=== PATIENT | male | born 1945 | race Caucasian/White ===

== ENCOUNTER 2019-01-18 11:19 | Day surgery (SDC) | payer OTHER, MEDICARE ==
--- OUTSIDE RECORDS SUMMARY | 2019-01-18 11:27 | XMS REPORT | Summary of Care ---
:1945 Author Organization [facility] Address [id number] [place] [id number]- Encounter [facility] Mely(FIN) [id number] Date(s): 12/30/18 - 12/30/18 [facility] [id number] [place] [phone]- [phone] Discharge Disposition: Home or Self Care Attending Physician: Beth Larson MD Referring Physician: Beth Larson MD Vital Signs Most recent to oldest [Reference Range]: 1 2 Height 177.8 cm 177.8 cm (12/30/18 9:30 AM) (12/30/18 9:28 AM) Weight 81.818 kg 81.818 kg (12/30/18 9:30 AM) (12/30/18 9:28 AM) Body Mass Index 25.88 m2 25.88 m2 (12/30/18 9:30 AM) (12/30/18 9:28 AM) Problem List No data available for this section Allergies, Adverse Reactions, Alerts Substance Reaction Severity Status NKDA Active Medications atorvastatin 20 mg oral tablet 20 mg=1 tab, PO, Bedtime, # 90 tab, 1 Refill(s) Start Date: 12/30/18 Status: Orderedlevothyroxine 150 microgram, PO, Daily, 0 Refill(s) Start Date: 12/30/18 Status: OrderedLyrica 75 mg oral capsule 75 mg=1 cap, PO, BID, # 60 cap, 0 Refill(s) Start Date: 12/30/18 Status: OrderedpredniSONE 20 mg oral tablet 20 mg=1 tab, PO, QID-After Meals, 0 Refill(s) Start Date: 12/30/18 Status: Ordered Results HEMATOLOGY Most recent to oldest [Reference Range]: 1 WBC [3.7-10.4 K/CMM] 12.3 K/CMM *HI* (12/30/18 9:37 AM) RBC [4.70-6.10 M/CMM] 4.92 M/CMM (12/30/18 9:37 AM) Hgb [14.0-18.0 g/dL] 15.2 g/dL (12/30/18 9:37 AM) Hct [42.0-54.0 %] 44.5 % (12/30/18 9:37 AM) MCV [80.0-94.0 fL] 90.4 fL (12/30/18 9:37 AM) MCH [27.0-31.0 pg] 30.9 pg (12/30/18 9:37 AM) MCHC [32.0-36.0 g/dL] 34.2 g/dL (12/30/18 9:37 AM) RDW [11.5-14.5 %] 13.5 % (12/30/18 9:37 AM) MPV [7.4-10.4 fL] 9.4 fL (12/30/18 9:37 AM) Platelet [133-450 K/CMM] 60 K/CMM *LOW* (12/30/18 9:37 AM) Segs [45.0-75.0 %] 79.0 % *HI* (12/30/18 9:37 AM) Bands [0.0-11.0 %] 0.0 % (12/30/18 9:37 AM) Lymphocytes [20.0-40.0 %] 11.0 % *LOW* (12/30/18 9:37 AM) Atypical Lymphs [<=0.0 %] 0.0 % (12/30/18 9:37 AM) Monocytes [2.0-12.0 %] 10.0 % (12/30/18 9:37 AM) Neutrophils # [1.5-8.1 K/CMM] 9.7 K/CMM *HI* (12/30/18 9:37 AM) Lymphocytes # [1.0-5.5 K/CMM] 1.4 K/CMM (12/30/18 9:37 AM) Monocytes # [0.0-0.8 K/CMM] 1.2 K/CMM *HI* (12/30/18 9:37 AM) Tot Cell Ct 100 *NA* (12/30/18 9:37 AM) RBC Morph Normal (12/30/18 9:37 AM) Plt Morph Normal (12/30/18 9:37 AM) Retic Auto [0.5-1.5 %] 0.9 % (12/30/18 9:37 AM) Immunizations No data available for this section Procedures Procedure Date Related Diagnosis Body Site Status Sinusectomy and turbinectomy Completed Social History Social History Type Response Smoking Status Former smoker; Type: Cigarettes; Previous treatment: None; Ready to change: No; Concerns about tobacco use in household: No; Exposure to Tobacco Smoke None; Cigarette Smoking Last 365 Days No; Reg Smoking Cessation Counseling No entered on: 12/30/18 Assessment and Plan No data available for this section
--- OUTSIDE RECORDS SUMMARY | 2019-01-18 11:27 | XMS REPORT | Continuity of Care Document ---
:1945 Author Organization Interface Problems Problem Status Onset Classification Date Comments Source Date Reported ITP Active [facility] [place] THROMBOCYTOPENI Active [facility] A, UNSPECIFIED [place] Medications Medication Details Route Status Patient Ordering Order Source Instructions Provider Date Thyroxine 150 Active [facility] microgram, 019 [place] PO, Daily, 0 Refill(s) atorvastatin 20 20 mg=1 Active [facility] mg oral tablet tab, PO, 019 [place] Bedtime, # 90 tab, 1 Refill(s) predniSONE 20 20 mg=1 Active [facility] mg oral tablet tab, PO, 019 [place] QID-After Meals, 0 Refill(s) pregabalin 75 75 mg=1 Active [facility] MG Oral Capsule cap, PO, 019 [place] [Lyrica] BID, # 60 cap, 0 Refill(s) Allergies, Adverse Reactions, Alerts Substance Category Reaction Severity Reaction Status Date Comments Source type Reported Immunizations Immunization Date Given Site Status Last Updated Comments Source Results Order Name Results Value Reference Date Interpretation Comments Source Range HEMATOLOGY MPV 9.4 fL 7.4 - 10.4 12/30 /2018 [place] HEMATOLOGY Platelet 60 K/CMM 133 - 450 12/30 [place] HEMATOLOGY RDW 13.5 % 11.5 - 12/30 [facility] 14.5 [place] HEMATOLOGY MCHC 34.2 g/dL 32.0 - 12/30 [facility] 36.0 [place] HEMATOLOGY MCV 90.4 fL 80.0 - 12/30 [facility] 94.0 [place] HEMATOLOGY Hct 44.5 % 42.0 - 12/30 [facility] 54.0 [place] HEMATOLOGY MCH 30.9 pg 27.0 - 12/30 [facility] 31.0 [place] HEMATOLOGY Hgb 15.2 g/dL 14.0 - 12/30 [facility] 18.0 [place] HEMATOLOGY RBC 4.92 M/CMM 4.70 - 12/30 [facility] 6.10 [place] HEMATOLOGY WBC 12.3 K/CMM 3.7 - 10.4 12/30 [place] HEMATOLOGY Plt Morph Normal 12/30 [place] (12/30/18 9:37 AM) HEMATOLOGY Tot Cell Ct 100 12/30 [place] HEMATOLOGY Segs 79.0 % 45.0 - 12/30 75.0 [place] HEMATOLOGY Monocytes # 1.2 K/CMM 0.0 - 0.8 12/30 [place] HEMATOLOGY RBC Morph Normal 12/30 [place] (12/30/18 9:37 AM) HEMATOLOGY Bands 0.0 % 0.0 - 11.0 12/30 [place] HEMATOLOGY Atypical 0.0 % <=0.0 % 12/30 Lymphs [place] HEMATOLOGY Lymphocytes 11.0 % 20.0 - 12/30 40.0 [place] HEMATOLOGY Monocytes 10.0 % 2.0 - 12.0 12/30 [place] HEMATOLOGY Lymphocytes 1.4 K/CMM 1.0 - 5.5 12/30 [place] HEMATOLOGY Neutrophils 9.7 K/CMM 1.5 - 8.1 12/30 [place] HEMATOLOGY Retic Auto 0.9 % 0.5 - 1.5 12/30 [place] Bone Marrow Bone Marrow Patient Name: BENITO DE LA ROSA 12/30 - [facility] : 1945; Age: 73 years y/o Male MR: [id number] Read by: Benito Lyon MD Dictated Date/time: 12/30/18 10:44 Electronically Signed by: Benito Lyon MD 12/30/18 10:47 FINAL REPORT PROCEDURE: Bone marrow aspiration and bone biopsy PHYSICIAN PROVIDING SERVICE: Benito Lyon M.D. HISTORY: Idiopathic thrombocytopenia purpura SEDATION: Intravenous Versed and fentanyl. 2 mg of Versed and 100 mcg of fentanyl were utilized. "Face to face" sedation time: 6 minutes CONSENT: The procedure, risks, benefits and alternatives were discussed with the patient and written informed consent was obtained. TECHNIQUE: The procedure was performed under CT guidance. With the patient the prone position, Limited CT images were obtained through the pelvis and a suitable posterior location for biopsy of the left posterior iliac crest was chosen. A generous portion of the gluteal region was prepped with ChloraPrep and draped. The site was anesthetized with 1 % lidocaine. A 3 mm incision was made at the entry si te. A 11-gauge bone biopsy needle was advanced under CT guidance to the posterior margin of the bone. 1% lidocaine was injected into the periosteal region. Utilizing the On - Control bone drill system, the needle was advanced into the marrow space. Bone marrow aspiration specimens were collected and deemed to be adequate by the hematology -- insulator technician. The needle was then advanced to allow for core bone specimen. A good core specimen was obtained and given to the technologist. Hemostasis was achieved. The patient tolerated the procedure well and suffered no immediate complications. CT imaging performed at this location utilizes radiation dose optimization techniques which include one or more of the following: -Automated exposure control. -Adjustment of the mA and/or kV according to patient size. -Use of iterative reconstruction technique. CT Radiation Dose DLP 186.75 mGy-cm IMPRESSION: 1. Bone marrow aspiration/bone biopsy, left iliac. SL: [id number] Vital Signs Vital Sign Value Date Comments Source Weight 81.818 12/30/2018 [facility] Height 177.8 cm 12/30/2018 [facility] BMI Calculated 25.88 12/30/2018 [facility] BMI Calculated 25.88 12/30/2018 [facility] Weight 81.818 12/30/2018 [facility] Height 177.8 cm 12/30/2018 [facility] Encounters Location Location Encounter Encounter Reason Attending ADM DC Status Source Details Type Number For Provider Date Date Visit [facility] Outpatient [id number] Beth 12/30 12/31 Kyle Larson /2018 [facility] Procedures Procedure Code Date Perfomer Comments Source Sinusectomy and [id number] [facility] turbinectomy
--- OUTSIDE RECORDS SUMMARY | 2019-01-18 11:27 | XMS REPORT | Clinical Summary ---
:1945 Author Organization [facility] Address [address] [place] [id number] Care Team Providers Name Role Phone Unavailable Primary Care Provider Unavailable Allergies Not on File Medications Not on file Active Problems Not on file Encounters Date Type Specialty Care Team Description 10/22/2018 Lab Lab Fred Awad MD 10/22/2018 Orders Only Procedural Cardiology Corinna Hernandez after 01/17/2018 Social History Tobacco Use Types Packs/Day Years Used Date Never Assessed Sex Assigned at Date Recorded Not on file Job Start Date Occupation Industry Not on file Not on file Not on file Travel History Travel Start Travel End No recent travel history available. Last Filed Vital Signs Not on file Plan of Treatment Health Maintenance Due Date Last Done Comments COLON CANCER SCREENING 1997 SHINGLES VACCINES (#1) 1997 65+ PNEUMOCOCCAL VACCINE (1 of 2 - PCV13) 2012 PNEUMOCOCCAL POLYSACCHARIDE VACCINE AGE 65 AND OVER 2012 INFLUENZA VACCINE 04/29/2019 Procedures Procedure Name Priority Date/Time Associated Diagnosis Comments ECG PRE/POST OP Routine 10/22/2018 2:15 PM Results for this [employer] procedure are in the results section. after 01/17/2018 Results ECG Pre/Post Op (10/22/2018 2:15 PM [employer]) Ventricular rate 64 [facility] Atrial rate 64 [facility] DE interval 164 [facility] QRSD interval 98 [facility] QT interval 428 [facility] QTC interval 441 [facility] P axis 1 37 [facility] QRS axis 1 42 [facility] T wave axis 47 [facility] EKG impression Sinus rhythm with occasional premature [facility] ventricular complexes-Nonspecific ST abnormality-Abnormal ECG-No previous ECGs available- Narrative Performed At Performing Organization Address City/State/Zipcode Phone Number [facility] [address] [place] [address] after 01/17/2018 Insurance Payer Benefit Plan / Group Subscriber ID Type Phone Address MEDICARE MEDICARE PART A AND B xxxxxxxxxxx Medicare [place], [place] ([address] [place] [address] Advance Directives Patient has advance care planning documents on file. For more information, please contact:[id number] [place] [address]
[2019-01-18] MEDS ORDERED: NA CHLORIDE 0.9% 250 ML ONE (12:42)
[2019-01-18 14:17] LABS: MPV 8.7 fL (7.6-11.3)
[2019-01-18 14:35] LABS: Platelet Estimate DECR
== END 2019-01-18 14:15 | disposition home or self-care (01) ==
LOC: DS 11:19
PROVIDERS: ATTEND Internal Medicine Medical Oncology
DX: D69.3 Immune thrombocytopenic purpura (principal); D69.6 Thrombocytopenia, unspecified
CPT/HCPCS: 36415; 86900; 86850; 85049; 86901; 36430; P9035